=== PATIENT | male | born 1995 | race Asian ===

== ENCOUNTER 2016-06-30 12:33 | Emergency (ER) | payer OTHER ==
[~2016-06-30] VITALS: Ht 180 cm; Wt 79.5 kg
[2016-06-30 12:38] VITALS: TEMP 97.5
[2016-06-30] MEDS ORDERED: NORCO 325 MG-51 TAB PO (14:16)
[2016-06-30 14:35] VITALS: BP 119/66; PULSE 72
== END 2016-06-30 14:36 | disposition home or self-care (01) ==
LOC: COL.ER 12:33
DX: S43.015A Anterior dislocation of left humerus, initial encounter (principal); W10.8XXA Fall (on) (from) other stairs and steps, initial encounter
CPT/HCPCS: J1170; J2405; J2704